=== PATIENT | female | born 1970 | race African-American/Black ===

== ENCOUNTER 2017-07-16 19:38 | Emergency (ER) | payer OTHER ==
[~2017-07-16] VITALS: Ht 154.9 cm; Wt 63.5 kg
[~2017-07-16 19:38] MED LIST: CYCLOBENZAPRINE10 M2 PO; DOXYCYCLINE HY150 MG PO; FLEXERIL10 MG PO; IBUPROFEN800 MG PO; LOMOTIL 0.025 M1 TAB PO; MEDROL4 M2 PO; METRONIDAZOLE500 MG PO; NAPROSYN500 M1 PO; OMEPRAZOLE40 MG PO; PERCOCET 325 MG1 TA2 PO; PRILOSEC40 MG PO; PROAIR HFA0.09 MG/Ac INH; TYLENOL #31 TAB PO; VICODIN 300 MG-1 TAB PO; ZOFRAN 4 MG TABL4 MG PO; ZOFRAN ODT4 MG PO
[2017-07-16 20:45] VITALS: BP 122/67
[2017-07-16] MEDS ORDERED: PERCOCET 5-3251 EACH PO (20:59)
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
== END 2017-07-16 21:05 ==
LOC: ERH 19:38
DX: T24.031A Burn of unspecified degree of right lower leg, initial encounter (principal); T52.8X1A Toxic effect of other organic solvents, accidental (unintentional), initial encounter; Y93.9 Activity, unspecified; Y92.009 Unspecified place in unspecified non-institutional (private) residence as the place of occurrence of the external cause
CPT/HCPCS: 90471; 96372